=== PATIENT | male | born 1995 | race Two or more races ===

== ENCOUNTER 2020-05-26 11:00 | Emergency (ER) | payer SELFPAY ==
[2020-05-26] MEDS ORDERED: Lidocaine 2% Viscous Solution 15 ML Cup PO ONE (12:22)
[2020-05-26] MEDS ORDERED: Benzocaine 20% Topical Spray UD MUCMEM ONE (12:22)
--- NOTE | 2020-05-26 12:28 | EDM.PDOC ---
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 Patient is a 24-year-old male who presents emergency room today with concern of tooth pain x10 days. Patient states that his tooth has been eroded for several years but he has not seen anybody for his teeth. Patient states over the past 10 days he has had increasing tooth pain but has not taken anything for symptoms or seen anybody prior for his tooth discomfort. Patient states he has been able to eat and drink but she was on the opposite side. Denies any health history. Patient denies fever, chills, chest pain, shortness of breath, or cough. Denies headache, neck stiff ness, change in vision, syncope, or near syncope. Denies nausea, vomiting, abdominal pain, diarrhea, constipation, or dysuria. Has not noted any blood in urine or stool. Patient has been eating and drinking appropriately. Review of systems: As per history of present illness and below otherwise all systems reviewed and negative. Past medical history: As per history of present illness and as reviewed below otherwise noncontributory. Surgical history: As per history of present illness and as reviewed below otherwise nonc ontributory. Social history: See social history for further information Family history: As per history of present illness and as reviewed below otherwise noncontributory. Physical exam: General: Patient is alert, oriented, and in no acute distress. Patient sitting comfortably on exam table. Vitals stable and reviewed by me. HEENT: Tooth number 31 is severely eroded to the gumline with surrounding mild edema of the gums adjacent to the tooth. Pain to palpation of this tooth without sign of drainable abscess. No adjacent edema of the mandible. Otherwise, Atraumatic, normocephalic, pupils equal and reactive bilaterally, negative for conjunctival pallor or scleral icterus, mucous membranes moist, TMs normal bilaterally, throat clear, neck supple, nontender, trachea midline. No drooling or trismus noted. No meningeal signs. No hot potato voice noted. Lungs: Clear to auscultation, breath sounds equal bilaterally, chest nontender. Heart: S1S2, regular rate and rhythm without overt murmur Abdomen: Soft, nondistended, nontender. Negative for masses or hepatosplenomegaly. Negative for costovertebral tenderness. Pelvis: Stable nontender. Genitourinary: Deferred. Rectal: Deferred. Skin: Intact, warm, dry. No lesions or rashes noted. Extremities: Atraumatic, negative for cords or calf pain. Neurovascular unremarkable. Neuro: Awake, alert, oriented. Cranial nerves II through XII unremarkable. Cerebellum unremarkable. Motor and sensory unremarkable throughout. Exam nonfocal. Notes: Signs and symptoms that would prompt return to the ED thoroughly discussed with patient. Discussed importance for follow-up with a dentist. Voices understanding and is agreeable to plan of care. Denies any further questions or concerns at this time. Diagnostics: None Therapeutics: Dental balls Prescription: Clindamycin Impression: Dental pain Tooth erosion Plan: 1. Please take medication as prescribed. 2. Tylenol and/or ibuprofen as directed and as needed for pain management. 3. "Tooth Balls" have been given to you; apply along the gumline every 2-3 hours as needed. Do not swallow these; external use only. 4. Follow-up with a dentist for definitive care. Return to the ED as needed and as discussed. Definitive disposition and diagnosis as appropriate pending reevaluation and review of above. - Related Data Home Meds: Home Meds Clindamycin HCl 300 mg PO TID 10 Days #30 capsule 05/26/20 [Rx] ED ROS GENERAL - Review of Systems Review Of Systems: Comprehensive ROS is negative, except as noted in HPI. ED EXAM, GENERAL - Physical Exam Exam: See Below (see dictation) Course - Orders/Labs/Meds Orders: Active Orders 24 hr Category Date Time Status Communication Order [RC] STAT Care 05/26/20 12:22 Ordered Benzocaine [Hurricaine One 20%] Med 05/26/20 12:22 Once 2 each MUCMEM ONETIME ONE Lidocaine 2% [Xylocaine 2% Viscous] Med 05/26/20 12:22 Once 15 ml PO ONETIME ONE Medication Orders Benzocaine (Hurricaine One 20%) 2 each MUCMEM ONETIME ONE Stop: 05/26/20 12:23 Lidocaine HCl (Xylocaine 2% Viscous) 15 ml PO ONETIME ONE Stop: 05/26/20 12:23 Meds: Medications Generic Name Dose Route Start Last Admin Trade Name Lashell PRN Reason Stop Dose Admin Benzocaine 2 each 05/26/20 12:22 Hurricaine One 20% MUCMEM 05/26/20 12:23 ONETIME ONE Lidocaine HCl 15 ml 05/26/20 12:22 Xylocaine 2% Viscous PO 05/26/20 12:23 ONETIME ONE Departure - Departure Time of Disposition: 12:23 Disposition: Home, Self-Care 01 Clinical Impression: Pain, dental, Tooth erosion - Discharge Information Prescriptions: Clindamycin HCl 300 mg PO TID 10 Days #30 capsule Additional Instructions: The following information is given to patients seen in the emergency department who are being discharged to home. This information is to outline your options for follow-up care. We provide all patients seen in our emergency department with a follow-up referral. The need for follow-up, as well as the timing and circumstances, are variable depending upon the specifics of your emergency department visit. If you don't have a primary care physician on staff, we will provide you with a referral. We always advise you to contact your personal physician following an emergency department visit to inform them of the circumstance of the visit and for follow-up with them and/or the need for any referrals to a consulting specialist. The emergency department will also refer you to a specialist when appropriate. This referral assures that you have the opportunity for follow-up care with a specialist. All of these measure are taken in an effort to provide you with optimal care, which includes your follow-up. Under all circumstances we always encourage you to contact your private physician who remains a resource for coordinating your care. When calling for follow-up care, please make the office aware that this follow-up is from your recent emergency room visit. If for any reason you are refused follow-up, please contact the [facility] Emergency Department at and asked to speak to the emergency department charge nurse. [facility] [address] [place] [address] [id number] [place] [id number] 1. Please take medication as prescribed. 2. Tylenol and/or ibuprofen as directed and as needed for pain management. 3. "Tooth Balls" have been given to you; apply along the gumline every 2-3 hours as needed. Do not swallow these; external use only. 4. Follow-up with a dentist for definitive care. Return to the ED as needed and as discussed. - My Orders Last 24 Hours: My Active Orders 05/26/20 12:22 Communication Order [RC] STAT Benzocaine [Hurricaine One 20%] 2 each MUCMEM ONETIME ONE Lidocaine 2% [Xylocaine 2% Viscous] 15 ml PO ONETIME ONE - Assessment/Plan Last 24 Hours: My Active Orders 05/26/20 12:22 Communication Order [RC] STAT Benzocaine [Hurricaine One 20%] 2 each MUCMEM ONETIME ONE Lidocaine 2% [Xylocaine 2% Viscous] 15 ml PO ONETIME ONE
== END 2020-05-26 13:11 | disposition home or self-care (01) ==
LOC: MW.ED 11:00
DX: K03.2 Erosion of teeth (principal)
CPT/HCPCS: 99282; A9270